=== PATIENT | male | born 1985 | race Caucasian/White ===

== ENCOUNTER 2016-06-23 08:44 | Day surgery (SDC) | payer OTHER ==
[2016-06-23] MEDS ORDERED: CEFAZOLIN SODIUM 2 GRAM PREMIX 100 ML IV PRN (08:45)
[2016-06-23] MEDS ORDERED: LACTATED RINGERS 1,000 ML ONE (08:55)
[2016-06-23] MEDS ORDERED: IV START KIT ONE (08:55)
[2016-06-23] MEDS ORDERED: CEFAZOLIN SODIUM 2 GRAM PREMIX 100 ML IV ONE (09:00)
[2016-06-23] MEDS ORDERED: ONDANSETRON 4 MG/2ML 2 ML VIAL ONE (09:54)
[2016-06-23] MEDS ORDERED: PROPOFOL 20 ML IV ONE (09:54)
[2016-06-23] MEDS ORDERED: LIDOCAINE 2% (MULTI DOSE) 10 ML VIAL ONE (09:54)
[2016-06-23] MEDS ORDERED: FENTANYL 250 MCG/5 ML AMP ONE (09:54)
[2016-06-23] MEDS ORDERED: KETOROLAC TROMETHAMINE 30 MG/ML 1 ML VIAL ONE (09:54)
[2016-06-23] MEDS ORDERED: DEXAMETHASONE SOD PHOS 4 MG/1 ML VIAL ONE (09:54)
[2016-06-23] MEDS ORDERED: MIDAZOLAM HCL 5 MG/5 ML VIAL ONE (09:54)
[2016-06-23] MEDS ORDERED: BUPIVACAINE 0.5% W/EPI SDV 30 ML VIAL ONE (10:34)
[2016-06-23] MEDS ORDERED: ONDANSETRON 4 MG/2ML 2 ML VIAL IV PRN ×2 (10:52→12:14)
[2016-06-23] MEDS ORDERED: PROMETHAZINE HCL 25 MG/ML VIAL IM PRN (10:52)
[2016-06-23] MEDS ORDERED: HYDROMORPHONE HCL 1 MG/ML SYRINGE IV PRN (10:52)
[2016-06-23] MEDS ORDERED: FENTANYL 100 MCG/2 ML VIAL IV PRN (10:52)
[2016-06-23] MEDS ORDERED: LACTATED RINGERS 1,000 ML IV SCH (11:00)
[2016-06-23] MEDS ORDERED: CEFAZOLIN SODIUM 1,000 MG VIAL ONE (11:03)
[2016-06-23] MEDS ORDERED: SODIUM CHLORIDE 0.9% FLUSH 10 ML ONE (11:04)
[2016-06-23] MEDS ORDERED: KETOROLAC TROMETHAMINE 30 MG/ML 1 ML VIAL IV PRN (12:14)
[2016-06-23] MEDS ORDERED: MORPHINE SULFATE 2 MG/ML SYRINGE IV PRN (12:14)
[2016-06-23] MEDS ORDERED: ACETAMINOPHEN 160 MG/5 ML ORAL.SOLN UDCUP PO PRN (12:14)
[2016-06-23] MEDS ORDERED: OXYCODONE HCL 5 MG TABLET PO PRN (12:14)
[2016-06-23] MEDS ORDERED: MORPHINE SULFATE 10 MG/ML SYRINGE IV PRN (12:32)
[2016-06-23] MEDS ORDERED: MORPHINE SULFATE 4 MG/ML SYRINGE IV PRN (12:32)
--- NOTE | 2016-06-23 13:48 | OP ---
Valerio Rosas [id number] DATE OF SURGERY: 06/23/2016 PREOPERATIVE DIAGNOSIS: Umbilical hernia. POSTOPERATIVE DIAGNOSIS: Umbilical hernia. PROCEDURE: Umbilical hernia repair with medium Ventralex mesh patch. SURGEON: Jone Garcia M.D. STREET PHOTOGRAPHER: Gia. ANESTHESIA: Gimenez, LMA General. INDICATION: This is a 30-year-old male who presents for an elective repair of a reducible umbilical hernia. DESCRIPTION: With informed consent the patient was taken to the operating room where he was laid supine on the operating room table. General anesthesia was administered. The abdomen was prepped and draped in the usual fashion. Some Marcaine with epinephrine was infiltrated in the skin and subcutaneous tissues. An incision was made below the umbilicus. Electrocautery was used to divide the subcutaneous fat. We dissected down to the fascia. The open the hernia sac and it from the umbilical skin. This was done with Metzenbaum scissors. Hernia sac was excised at the level of the fascia using electrocautery. The hernia defect measured about 2.5 cm in diameter. I chose a medium Ventralex mesh patch, this was placed intraabdominally. Care was taken to ensure there were no visceral structures between the mesh and the anterior abdominal wall. We made sure the mesh was laying flat. It was secured circumferentially with 0 Vicryl's. The tails were cut away. The wound was irrigated. We did elevate some of the subcutaneous fat circumferentially to help eliminate the space and in doing so we did bring some of the subcutaneous fat together. I did then bring the umbilical skin down to the subcutaneous fat overlying the mesh with some 3-0 Vicryl's. This recreated a dimple. The skin was closed with a running subcuticular 4-0 Monocryl. Mastisol and Steri-Strips were placed. Sterile dressings were applied. An abdominal binder was applied. He tolerated the procedure and was taken to the recovery room in stable condition. Note was made that needle, instrument, and lap counts were reported as correct at the time of closure. JOB: [id number] CC: PJ Rock
== END 2016-06-23 19:09 | disposition home or self-care (01) ==
LOC: SDC 08:44
PROVIDERS: ATTEND Surgery
PROC: 0WUF0JZ Supplement Abdominal Wall with Synthetic Substitute, Open Approach (ICD-10-PCS; principal; 2016-06-23)
DX: K42.9 Umbilical hernia without obstruction or gangrene (principal); K21.9 Gastro-esophageal reflux disease without esophagitis; Z87.891 Personal history of nicotine dependence
CPT/HCPCS: 49585; J0690 ×2; J3010; J1100; A9270; J1885; J2250; J2405; J7120; J2001